=== PATIENT | female | born 1980 | race African-American/Black ===

== ENCOUNTER 2020-01-20 18:02 | Emergency (ER) | payer OTHER ==
[~2020-01-20] VITALS: Ht 160 cm; Wt 59.0 kg
[2020-01-20 18:11] VITALS: BP 132/74
--- NOTE | 2020-01-20 18:24 | NUR ---
PATIENT AMBULATED TO BED 1.
--- NOTE | 2020-01-20 18:30 | NUR ---
39/F BIB SELF C/O ABSCESS TO MID BACK X 5 DAYS.MED HX: DENIES. AAOX4 WITH EVEN AND STEADY GAIT; LUNGS CLEAR BL; HR EVEN AND REGULAR; PT DENIES ANY FEVER, CP, SOB, OR COUGH AT THIS TIME; PATIENT STATES PAIN OF 9/10 AT THIS TIME.
[2020-01-20] MEDS ORDERED: LIDOCAINE/EPI 1% 1:100000 20 ML VIAL INJ ONE (18:50)
--- NOTE | 2020-01-20 19:07 | NUR ---
REPORT RECEIVED FROM CLAIR ARELLANO FOR CONTINUITY OF CARE
[2020-01-20] MEDS ORDERED: SULFAMETH/TRIMETH DS 800/160MG 1 TAB PO ONE (19:30)
[2020-01-20] MEDS ORDERED: cephALEXin 500 MG CAP PO ONE (19:30)
--- NOTE | 2020-01-20 19:45 | NUR ---
ISLAND DRESSING PLACED OVER PT WOUND
[2020-01-20 20:27] VITALS: BP 132/74
--- NOTE | 2020-01-20 20:27 | NUR ---
Patient discharged with v/s stable. Written and verbal after care instructions given and explained. Patient alert, oriented and verbalized understanding of instructions. Ambulatory with steady gait. All questions addressed prior to discharge. ID band removed. Patient advised to follow up with PMD. Rx of TRAMADOL, BACTRIM, AND KEFLEX given. Patient educated on indication of medication including possible reaction and side effects. Opportunity to ask questions provided and answered.
== END 2020-01-20 20:27 | disposition home or self-care (01) ==
LOC: MED 18:02
DX: L02.412 Cutaneous abscess of left axilla (principal)
CPT/HCPCS: 10060; 99284; J2001

== ENCOUNTER 2020-01-24 02:35 | Emergency (ER) | payer OTHER ==
[~2020-01-24] VITALS: Ht 160 cm; Wt 89.8 kg
[2020-01-24 02:40] VITALS: BP 145/87
--- NOTE | 2020-01-24 02:43 | NUR ---
PT TAKEN TO BED 4
--- NOTE | 2020-01-24 02:50 | NUR ---
39 Y/O FEMALE BIB SELF FOR C/O WOUND RECHECK. PT STATES I &D OF ABCESS ON BACK DONE SATURDAY. PACKING PLACED. AFEBRILE. 0/20 PAIN AT SITE. NO DRAINAGE NOTED. NO REDNESS OR SWELLING NOTED. SKIN WARM AND DRY. VSS. MEDHX: DENIES NKA
--- NOTE | 2020-01-24 02:50 | NUR ---
ERMD AT BEDSIDE EVALUATING PT
[2020-01-24 03:00] VITALS: BP 145/87
--- NOTE | 2020-01-24 03:00 | NUR ---
Patient discharged with v/s stable. Written and verbal after care instructions given and explained. Patient alert, oriented and verbalized understanding of instructions. Ambulatory with steady gait. All questions addressed prior to discharge. ID band removed. Patient advised to follow up with PMD. Opportunity to ask questions provided and answered.
== END 2020-01-24 03:00 | disposition home or self-care (01) ==
LOC: MED 02:35
DX: L02.212 Cutaneous abscess of back [any part, except buttock and flank] (principal)
CPT/HCPCS: 99281